=== PATIENT | male | born 1980 | race Caucasian/White ===

== ENCOUNTER → 2018-05-10 | Outpatient (CLI) ==
[2018-05-10 14:15] LABS: ABSOLUTE RETIC # 53 10e9/L (24-90); RETICULOCYTE % 1.02 % (0.50-2.40)
[2018-05-10 14:42] LABS: BAND NEUTROPHILS 4 %; BASOPHILS % (MANUAL) 2 %; EOSINOPHILS % (MANUAL) 1 %; LYMPHOCYTES % (MANUAL) 30 %; MONOCYTES % (MANUAL) 4 %; NEUTROPHILS % (MANUAL) 59 %; RBC MORPH NORMAL
== END ==
LOC: LABNPT 14:09
PROVIDERS: ATTEND Family Medicine
DX: D69.6 Thrombocytopenia, unspecified (principal)
CPT/HCPCS: 85007; 85045